=== PATIENT | male | born 1970 | race Caucasian/White ===

== ENCOUNTER 2018-01-31 16:40 | Emergency (ER) | payer SELFPAY ==
[~2018-01-31] VITALS: Ht 188 cm; Wt 101.4 kg
[2018-01-31 16:43] VITALS: BP 148/96
== END 2018-01-31 17:53 | disposition home or self-care (01) ==
LOC: ED 17:39
DX: F20.9 Schizophrenia, unspecified (principal); F31.9 Bipolar disorder, unspecified; F17.200 Nicotine dependence, unspecified, uncomplicated
CPT/HCPCS: 82962; 99283